=== PATIENT | female | born 1995 | race Caucasian/White ===

== ENCOUNTER 2024-11-23 19:37 | Emergency (ER) | payer BC ==
[~2024-11-23] VITALS: Ht 165.1 cm; Wt 115.3 kg
[2024-11-23 20:35] LABS: BASOPHILS % (AUTO) 0.3 % (0-1); EOSINOPHILS # (AUTO) 0.1 X10'3 (0-0.9); EOSINOPHILS % (AUTO) 0.9 % (0-6); HEMOGLOBIN 12.9 g/dl (12.0-16.0); LYMPHOCYTES # (AUTO) 2.3 X10'3 (1.1-4.8); LYMPHOCYTES % (AUTO) 28.8 % (21-51); MEAN CORPUSCULAR HEMOGLOBIN 23.9 PG (27.0-31.0); MEAN CORPUSCULAR HGB CONC 32.2 g/dL (33.0-36.5); MEAN CORPUSCULAR VOLUME 74.2 FL (78-98); MONOCYTES # (AUTO) 0.5 X10'3 (0-0.9); MONOCYTES % (AUTO) 5.9 % (2-12); NEUTROPHILS # (AUTO) 5.1 X10'3 (1.8-7.7); NEUTROPHILS % (AUTO) 64.1 % (42-75); PLATELET COUNT 301 X10'3 (140-440); RED BLOOD COUNT 5.39 X10'6 (4.20-5.60); RED CELL DISTRIBUTION WIDTH 15.6 % (11.5-14.5)
[2024-11-23 21:02] LABS: ALANINE AMINOTRANSFERASE 34 U/L (12-78); ALBUMIN 3.5 G/DL (3.4-5.0); ALBUMIN/GLOBULIN RATIO 0.9 (1.1-1.5); ALKALINE PHOSPHATASE 62 IU/L (46-116); ANION GAP 9 (8-16); ASPARTATE AMINO TRANSFERASE 14 U/L (10-37); BILIRUBIN,TOTAL 0.3 MG/DL (0.1-1.0); BLOOD UREA NITROGEN 13 MG/DL (7-18); BUN/CREATININE RATIO 31.7 (10.0-20.0); CALCIUM 9.3 MG/DL (8.5-10.1); CHLORIDE 108 MMOL/L (99-107); CREATININE 0.41 MG/DL (0.40-0.90); GLUCOSE 98 MG/DL (70-104); POTASSIUM 3.7 MMOL/L (3.5-5.1); SODIUM 143 MMOL/L (135-145); TOTAL CARBON DIOXIDE 26.2 MMOL/L (24-32); TOTAL PROTEIN 7.5 G/DL (6.4-8.2); eCRCL 185 ML/MIN; eGFR > 90 ML/MIN
[2024-11-23 21:11] LABS: PRO BRAIN NATRIURETIC PEPTIDE 225 PG/ML (0-125)
[2024-11-23 23:11] VITALS: TEMP 98.4
[2024-11-23] MEDS: normal saline 1000ML IV soln IVB ONE (23:41)
[2024-11-24] MEDS: propranolol 10mg tablet PO ONE ×2 (00:10→01:56)
[2024-11-24] MEDS ORDERED: PROP20TA6 PO (00:22)
[2024-11-24 00:37] LABS: THYROID STIMULATING HORMONE < 0.01 ulU/ml (0.34-4.50)
[2024-11-24 01:32] LABS: FREE T4 (FREE THYROXINE) 4.59 NG/DL (0.73-1.40)
[2024-11-24 01:41] VITALS: BP 140/58; PULSE 110; RESP 16; O2SAT 98
== END 2024-11-24 02:03 | disposition home or self-care (01) ==
LOC: ER 19:38
DX: R00.0 Tachycardia, unspecified (principal); E05.90 Thyrotoxicosis, unspecified without thyrotoxic crisis or storm; Z79.899 Other long term (current) drug therapy
CPT/HCPCS: 36415; 71045; 80053; 83880; 84439; 84443; 84484; 85025; 93005; 96360; 99285; J7030